=== PATIENT | male | born 1995 | race Two or more races ===

== ENCOUNTER 2022-03-31 18:36 | Emergency (ER) | payer MEDICAID ==
[~2022-03-31] VITALS: Ht 170.2 cm; Wt 86.5 kg
[2022-03-31 21:08] VITALS: BP 134/82
== END 2022-03-31 21:27 | disposition home or self-care (01) ==
LOC: ER 18:37
DX: R04.0 Epistaxis (principal)

== ENCOUNTER 2025-03-20 10:28 | Emergency (ER) | payer MEDICAID ==
[~2025-03-20] VITALS: Ht 167.6 cm; Wt 83.3 kg
[2025-03-20 10:30] VITALS: BP 136/94; PULSE 82; RESP 18; TEMP 98.2; O2SAT 98
--- NOTE | 2025-03-20 11:29 | ED.PDOC ---
General HPI Comments 29-year-old male presents to the ER with a with a chief complaint of a possible kidney stone. Patient reports on having passed two kidney stones during the past 3 months, and currently has a penile pain for the past four days, assuming that it is a kidney stone that is stuck. Denies any other symptoms at this time. Denies fevers chills night sweats Denies pelvic pain Denies nausea vomiting diarrhea Denies dysuria urgency frequency Denies history of UTI Denies blood in the urine or semen Denies recent instruments/toys and urethra Denies current tobacco use Denies family history of prostate issues Chief Complaint: Penile Problem Time Seen by MD: 11:30 Reviewed notes: Nurses Notes, Medications, Allergies Allergies: Coded Allergies: NO KNOWN ALLERGIES (Unverified , 03/20/25) Home Meds Active Scripts Clotrimazole W/ Betamethasone (Clotrimazole/Betamethason 1-0.05 %) 1 Cre Cre, 1 APPLIC EX BID for 5 Days, #30 GRAMS 0 Refills Prov:SHAKILA HOLCOMB NP 03/20/25 Information Source: Patient Mode of Arrival: Ambulatory Severity: Moderate Timing: Days Duration: Since onset, Days Prehospital treatment: None Onset: Spontaneous Symptoms: None History of: Kidney stone Location: None Penile discharge: None associated signs and symptoms: None Past Medical History PAST MEDICAL HISTORY: Kidney Stones Surgical History: Denies all surgeries Family History Family History: Reviewed,noncontributory to illness, Unknown Social History Smoker: Non-Smoker Alcohol: Denies ETOH Use Drugs: Denies Drug Use Lives In: Home Constitutional: denies: chills, diaphoresis, fatigue, fever, malaise, sweats, weakness, others EENTM: denies: blurred vision, double vision, ear bleeding, ear discharge, ear drainage, ear pain, ear ringing, eye pain, eye redness, hearing loss, mouth pain, mouth swelling, nasal discharge, nose bleeding, nose congestion, nose pain, photophobia, tearing, throat pain, throat swelling, voice changes, others Respiratory: denies: cough, hemoptysis, orthopnea, SOB at rest, shortness of breath, SOB with excertion, stridor, wheezing, others Cardiovascular: denies: chest pain, dizzy spells, diaphoresis, Dyspnea on exertion, edema, irregular heart beat, left arm pain, lightheadedness, palpitations, PND, syncope, others Gastrointestinal: denies: abdomen distended, abdominal pain, blood streaked bowels, constipated, diarrhea, dysphagia, difficulty swallowing, hematemesis, melena, nausea, poor appetite, poor fluid intake, rectal bleeding, rectal pain, vomiting, others Genitourinary: denies: burning, dysuria, flank pain, frequency, hematuria, incontinence, penile discharge, penile sore, pain, testicle pain, testicle swelling, urgency, others Neurological: denies: dizziness, fainting, headache, left sided numbness, left sided weakness, numbness, paresthesia, pre-existing deficit, right sided numbness, right sided weakness, seizure, speech problems, tingling, tremors, weakness, others Musculoskeletal: denies: back pain, gout, joint pain, joint swelling, muscle pain, muscle stiffness, neck pain, others Integumetry: denies: bruises, change in color, change in hair/nails, dryness, laceration, lesions, lumps, rash, wounds, others Allergic/Immunocompromised: denies: Difficulty Healing, Frequent Infections, Hives, Itching, others Hematologic/Lymphatic: denies: anemia, blood clots, easy bleeding, easy bruising, swollen glands, others Endocrine: denies: excessive hunger, excessive sweating, excessive thirst, excessive urination, flushing, intolerance to cold, intolerance to heat, unexplained weight gain, unexplained weight loss, others Psychiatric: denies: anxiety, bipolar disorder, depression, hopeless, panic disorder, schizophrenia, sleepless, suicidal, others All Other Systems: Reviewed and Negative Physical Exam General Appearance: No Apparent Distress, Normal HEENT: Normal ENT Inspection, Pharynx Normal, TMs Normal Neck: Full Range of Motion, Non-Tender, Normal, Normal Inspection Respiratory: Chest Non-Tender, Lungs Clear, No Accessory Muscle Use, No Respiratory Distress, Normal Breath Sounds Cardiovascular: No Edema, No JVD, No Murmur, No Gallop, Normal Peripheral Pulses, Regular Rate/Rhythm Breast Exam: Deferred Gastrointestinal: No Organomegaly, Non Tender, No Pulsatile Mass, Normal Bowel Sounds, Soft Genitalia: Deferred Pelvic: Deferred Rectal: Deferred Extremities: No calf tenderness, Normal capillary refill, Normal inspection, Normal range of motion, Non-tender, No pedal edema Musculoskeletal : Apperance: Normal Neurologic: Alert, 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 Was a procedure done?: No Differential Diagnosis Kidney stone (Female): Other X-Ray, Labs, Meds, VS Vital Signs Date Time Temp Pulse Resp B/P (MAP) Pulse Ox O2 Delivery O2 Flow Rate FiO2 03/20/25 10:30 98.2 82 18 136/94 98 98.2 Lab Test 03/20/25 11:20 Range/Units Urine Color Light-yellow Yellow Urine Clarity Clear Clear Urine pH 6.5 5.0-9.0 Urine Specific [place] 1.018 1.001-1.035 Urine Protein Negative Negative Urine Ketones Negative Negative Urine Blood 1+ H Negative /uL Urine Nitrite Negative Negative Urine Bilirubin Negative Negative Urine Urobilinogen Normal Negative mg/dL Urine Leukocyte Esterase Negative Negative /uL Urine RBC 15 0 - 3 /hpf Urine Microscopic WBC < 1 0-3 /HPF Urine Squamous Epithelial Cells None seen <5 /hpf Urine Bacteria None seen None Seen /hpf Urine Glucose Normal Normal mg/dL Chlamydia trachomatis (CHAD) Pending Neisseria gonorrhoeae (CHAD) Pending X-Ray, Labs, Meds, VS Comment 29-year-old male presents to the ER with a with a chief complaint of a possible kidney stone. Patient arrives alert and oriented, ABC's intact, afebrile, vital signs stable, saturating well in room air Peripheral IV insertion+ labs were ordered. GC Urinalysis was ordered to rule out UTI or hematuria. PHYSICAL EXAM: CONSTITUTIONAL: Non-toxic appearing, in no acute distress, well-developed Vitals: @VS@ oxygen saturation per my interpretation. CARDIOVASCULAR: Good S1, S2 without murmurs to heart auscultation, chest wall without tenderness to palpation. RESPIRATORY: good respiratory effort, lungs are clear to auscultation bilaterally without wheezes or crackles. No retractions. GI: normal appearance, tender abdomen on exam without rebound or guarding, distended : Genital Exam: circumcised penis, no urethral discharge. No evidence of paraphimosis. No genital ulcers or lesions. scrotal contents- testes descended, tenderness to palpation. No groin lymphadenopathy. Medical Decision Making: DIFFERENTIAL DIAGNOSIS: Symptoms consistent with balanoposthitis. Physiologic phimosis noted on exam but no evidence of obstructive uropathy. Pain well cont rolled and patient well hydrated Recommended sitz baths twice daily with bacitracin ointment three times a day to shaft and glans. Stressed importance of pulling foreskin back to normal position afterwards. If no improvement over the next week, then follow up with primary doctor. Return precautions discussed such as those associated with obstructive uropathy. Additional MDM Review of External, Non-ED records: External records reviewed. Discussion with independent historian (EMS, family) history obtained from the patient/parents (if applicable) at bedside Chronic conditions affecting care: None Social determinants of health affecting care: None Consideration of admission (observation or admission): I considered escalation of care to admission for this patient, however given the reassuring workup, the patient is safe for outpatient management. Discussion with the Radiology: No Tests considered but not performed: Prescription medication considered but not given: 12 lead EKG interpretation: Time of 1ST Reevaluation: 12:00 Reevaluation 1ST: Unchanged Patient Education/Counseling: Diagnosis, Treatment, Prognosis Family Education/Counseling: No Family Present SEPSIS Sepsis Screen Date sepsis recognized/suspect: Mar 20, 2025 Time Sepsis recognized/suspect: 1033 Recent Procedure: No On Antibiotic Therapy: No Respiratory Rate >20: No Heart Rate >90: No Temp<36 C (96.8 F) or >38.3 C: No SBP <90 or MAP <65 mmHG: No New Acute Mental Status Change: No Is the patient on CPAP, BIPAP,: No Physician Orders Chlamydia/Gc Amplification (03/20/25 11:37) Vital Signs Date Time Temp Pulse Resp B/P (MAP) Pulse Ox O2 Delivery O2 Flow Rate FiO2 03/20/25 10:30 98.2 82 18 136/94 98 98.2 Departure 1 Departure Time of Disposition: 13:27 Impression: Primary Impression: Penile inflammation Disposition: 01 HOME / SELF CARE / HOMELESS Condition: Fair e-Prescriptions Clotrimazole W/ Betamethasone (Clotrimazole/Betamethason 1-0.05 %) 1 Cre Cre 1 APPLIC EX BID for 5 Days, #30 GRAMS 0 Refills Prov: SHAKILA HOLCOMB NP 03/20/25 Critical Care Note Critical Care Time?: No Stability Stability form required: No Heart Score Heart Score: Heart Score Response (Comments) Value History N/A 0 EKG N/A 0 Age N/A 0 Risk Factors N/A 0 Troponin N/A 0 Total 0 I personally scribed for SHAKILA HOLCOMB NP ([email or web address]) on 03/20/25 at 11:29. Electronically submitted by Judah Smith ([employer]). I personally scribed for SHAKILA HOLCOMB NP ([email or web address]) on 03/20/25 at 11:34. Electronically submitted by Judah Smith ([employer]). SHAKILA HOLCOMB NP Mar 20, 2025 11:29
[2025-03-20 12:20] LABS: Urine Protein, UAD Negative (Negative)
[2025-03-20] MEDS ORDERED: CLOTCRE3 EX (13:29)
[2025-03-22 06:07] LABS: Chlamydia Trachomatis, NAA Negative (Negative); Neisseria gonorrhoeae, NAA Negative (Negative)
== END 2025-03-20 13:35 | disposition home or self-care (01) ==
LOC: ER 10:28
DX: N48.89 Other specified disorders of penis (principal); Z20.822 Contact with and (suspected) exposure to COVID-19; Z87.442 Personal history of urinary calculi
CPT/HCPCS: 81001